=== PATIENT | female | born 1990 | race African-American/Black ===

== ENCOUNTER 2016-12-17 13:28 | Emergency (ER) | payer MEDICAID, OTHER ==
[~2016-12-17 13:28] MED LIST: HYDR-3533 PO
[2016-12-17 13:29] VITALS: BP 138/79; PULSE 93; RESP 20; TEMP 99.1; O2SAT 99
[2016-12-17 13:58] VITALS: BP 130/85; PULSE 89; RESP 15; O2SAT 99
[2016-12-17] MEDS ORDERED: SODIUM CHLOR 0.9% 1000 ML INJ 1,000 ML IV SCH (13:59)
[2016-12-17] MEDS ORDERED: SODIUM CHLORIDE 0.9% FLUSH 10 ML FLUSH IV FLUSH PRN (14:00)
[2016-12-17] MEDS ORDERED: ONDANSETRON HCL 4 MG/2 ML VIAL IVP ONE (14:00)
--- NOTE | 2016-12-17 14:04 | PD ---
HPI Chief Complaint: Cold / Flu Symptoms Time Seen by Provider: 13:52 Travel History International Travel<30 days: No Contact w/Intl Traveler<30days: No Traveled to known affect area: No History of Present Illness HPI Patient comes in complaining of nausea, vomiting, subjective fevers, and generalized body aches that she awoke with this morning. Patient denies any diarrhea, loss or change in bowel or bladder, abdominal pain, chest pain, shortness breath, or headaches. Patient denies doing anything for this as she states she's been unable keep anything down. Eating or drinking anything makes her symptoms worse. Patient denies anything making it better. Severity mild. Denies states she is on the Depo-Provera. [facility] Past Medical History Medical History: Denies Significant Hx Tetanus Vaccination: Unknown ?: Not Past Surgical History Surgical History: No Previous Surgery Social History Alcohol Use: No (occ) Tobacco Use: No Substance Use: No Allergies-Medications (Allergen,Severity, Reaction): Coded Allergies: Penicillins (Verified Allergy, Unknown, 12/17/16) Reported Meds & Prescriptions Reported Meds & Active Scripts Active Phenergan Supp (Promethazine HCl) 12.5 Mg Supp 12.5 Mg RECTAL Q6H PRN Zofran Odt (Ondansetron Odt) 4 Mg Tab 4 Mg SL Q6HR PRN Lortab 5 mg/325 mg (Hydrocodone/Acetaminophen 5 mg/325 mg) 1 Tab 1-2 Tab PO Q4H PRN Review of Systems Except as stated in HPI: all other systems reviewed are Neg Physical Exam Narrative GENERAL: Well-developed, well nourished, in no acute distress, and non-ill appearing. Temperature rechecked at bedside by myself found to be 98.1 orally. SKIN: Focused skin assessment warm and dry. HEAD: Atraumatic. Normocephalic. EYES: Pupils equal and round. EOMI. No scleral icterus. No injection or drainage. ENT: No nasal bleeding or discharge. Mucous membranes pink and moist. NECK: Trachea midline. Supple. No nuclear rigidity. CARDIOVASCULAR: Regular rate and rhythm. No murmur appreciated. RESPIRATORY: No accessory muscle use. No respiratory distress. Clear to auscultation. Breath sounds equal bilaterally. GASTROINTESTINAL: Abdomen soft, non-tender, nondistended, and no guarding. Hepatic and splenic margins not palpable. Normal bowel sounds 4. No pulsatile mass. MUSCULOSKELETAL: No obvious deformities. No clubbing. No cyanosis. No edema. Full range of motion. NEUROLOGICAL: Awake and alert. No obvious cranial nerve deficits. Motor grossly within normal limits. Normal speech. PSYCHIATRIC: Appropriate mood and affect; insight and judgment normal. Data Data Last Documented VS Vital Signs Date Time Temp Pulse Resp B/P (MAP) Pulse Ox O2 Delivery O2 Flow Rate FiO2 12/17/16 14:58 85 16 100 12/17/16 13:29 99.1 Orders Orders Complete Blood Count With Diff (12/17/16 13:59) Comprehensive Metabolic Panel (12/17/16 13:59) Lipase (12/17/16 13:59) Urinalysis - C+S If Indicated (12/17/16 13:59) Iv Access Insert/Monitor (12/17/16 13:59) Ecg Monitoring (12/17/16 13:59) Oximetry (12/17/16 13:59) Ondansetron Inj (Zofran Inj) (12/17/16 14:00) Sodium Chlor 0.9% 1000 Ml Inj (Ns 1000 M (12/17/16 13:59) Sodium Chloride 0.9% Flush (Ns Flush) (12/17/16 14:00) Electrocardiogram (12/17/16 13:59) Ed Urine Pregnancytest Poc (12/17/16 13:59) Influenzae A/B Antigen (12/17/16 13:59) Chest, Single Ap (12/17/16 ) Ketorolac Inj (Toradol Inj) (12/17/16 15:00) Ondansetron Inj (Zofran Inj) (12/17/16 15:00) Labs Laboratory Tests Test 12/17/16 14:06 White Blood Count 7.5 TH/MM3 Red Blood Count 4.97 MIL/MM3 Hemoglobin 13.8 GM/DL Hematocrit 41.5 % Mean Corpuscular Volume 83.5 FL Mean Corpuscular Hemoglobin 27.7 PG Mean Corpuscular Hemoglobin Concent 33.2 % Red Cell Distribution Width 14.4 % Platelet Count 145 TH/MM3 Mean Platelet Volume 9.4 FL Neutrophils (%) (Auto) 84.7 % Lymphocytes (%) (Auto) 7.1 % Monocytes (%) (Auto) 7.5 % Eosinophils (%) (Auto) 0.5 % Basophils (%) (Auto) 0.2 % Neutrophils # (Auto) 6.4 TH/MM3 Lymphocytes # (Auto) 0.5 TH/MM3 Monocytes # (Auto) 0.6 TH/MM3 Eosinophils # (Auto) 0.0 TH/MM3 Basophils # (Auto) 0.0 TH/MM3 CBC Comment DIFF FINAL Differential Comment Urine Color YELLOW Urine Turbidity CLEAR Urine pH 7.0 Urine Specific Glade 1.027 Urine Protein TRACE mg/dL Urine Glucose (UA) NEG mg/dL Urine Ketones NEG mg/dL Urine Occult Blood NEG Urine Nitrite NEG Urine Bilirubin NEG Urine Urobilinogen LESS THAN 2.0 MG/DL Urine Leukocyte Esterase MOD Urine RBC 1 /hpf Urine WBC 6 /hpf Urine Squamous Epithelial Cells 4 /hpf Urine Bacteria FEW /hpf Urine Mucus FEW /lpf Microscopic Urinalysis Comment CULT NOT INDICATED Blood Urea Nitrogen 7 MG/DL Creatinine 0.92 MG/DL Random Glucose 96 MG/DL Total Protein 7.9 GM/DL Albumin 4.2 GM/DL Calcium Level 8.9 MG/DL Alkaline Phosphatase 62 U/L Aspartate Amino Transf (AST/SGOT) 32 U/L Alanine Aminotransferase (ALT/SGPT) 47 U/L Total Bilirubin 0.9 MG/DL Sodium Level 138 MEQ/L Potassium Level 3.9 MEQ/L Chloride Level 104 MEQ/L Carbon Dioxide Level 24.3 MEQ/L Anion Gap 10 MEQ/L Estimat Glomerular Filtration Rate 88 ML/MIN Lipase 67 U/L [facility] Medical Decision Making Medical Screen Exam Complete: Yes Emergency Medical Condition: Yes Interpretation(s) Chest x-ray with radiologist shows: No acute disease. Differential Diagnosis Influenza, viral syndrome, electrolyte abnormality, gastroenteritis, pneumonia, UTI, other Narrative Course Patient looks great, non-ill appearing but does appear slightly volume depleted without evidence of significant dehydration. The patient was given IVF in the Emergency Department for rehydration. The patient responded well and is tolerating fluids and appears hydrated. I suspect viral etiology versus possible gastritis by history and exam. The abdominal exam is unremarkable without defined focal tenderness. There are normal active bowel sounds without any masses, distension, or significant tenderness. There was no evidence of an acute, surgical abdomen at this time. There was no clinical evidence to support cholecystitis/cholelithiasis, pancreatitis, perforation of gastric ulcer, colitis, diverticulitis, peritonitis, obstruction, volvulus, early appendicitis , or hernial incarceration or strangulation at this time. There was no evidence to support vascular pathology such as AAA, mesenteric ischemia. There was also no clinical evidence by history, exam or risk factors to suggest atypical presentation of cardiac disease such as ACS, AMI or atypical angina. No evidence to suggest genitourinary etiology as well. During the course of the ED visit, the patient noted improvement. Clinical picture was discussed with the patient, as well as plan of care. The patient was instructed to follow up with their physician. Abdominal pain warnings were discussed with the patient. The patient is to return if worsens, pain worsens or changes, develop fever, inability to tolerate fluids with or without vomiting, increased vomiting, blood in vomit, unable to establish follow up or as needed. The patient agrees with plan. The patient was tolerating fluids at time of discharge. Patient in no obvious distress upon re-evaluation. All pertinent laboratory/ Radiology result(s) discussed with patient. Patient was asked if they wanted to speak to my attending, which the patient did not wish to do at this time. Any questions/concerns in reference to patient diagnosis/condition discussed and clarified prior to patient's discharge. Reinforced sheer importance of close follow up with patient's primary physician or primary care clinic. Instructed patient to return to ED immediately, if symptoms return/worsen. Pt showed understanding of above instructions. Further instructions and recommendations were detailed in discharge paperwork. Pt ambulated without difficulty out of ED at discharge. Diagnosis Primary Impression: Nausea and vomiting Qualified Codes: R11.2 - Nausea with vomiting, unspecified Referrals: [facility] Patient Instructions: Acute Nausea and Vomiting (ED), General Instructions Additional Instructions: Follow-up with your primary care physician this week for evaluation. Take all medication as prescribed. Use [id number] Tylenol and/or ibuprofen as needed for pain and/or fevers. Follow instructions on the packaging. Drink plenty non-caffeinated and nonalcoholic fluids. Return to the emergency department if symptoms get worse. Med/Other Pt SpecificInfo: Prescription(s) given Scripts Promethazine Supp (Phenergan Supp) 12.5 Mg Supp 12.5 MG RECTAL Q6H Y for NAUSEA OR VOMITING, #9 SUPP 0 Refills Prov: Lonny Colon MD 9/3/17 Ondansetron Odt (Zofran Odt) 4 Mg Tab 4 MG SL Q6HR Y for Nausea/Vomiting, #21 TAB 0 Refills Prov: Lonny Colon MD 12/17/16 Disposition: 01 DISCHARGE HOME Condition: Stable Nathan Stapleton Dec 17, 2016 14:04
--- NOTE | 2016-12-17 14:19 | RADRPT ---
EXAM DATE/TIME: 12/17/2016 14:14 [place] COMPARISON: No previous studies available for comparison. INDICATIONS : Vomiting. Cough. Chest pain. MEDICAL HISTORY : None. SURGICAL HISTORY : None. ENCOUNTER: Initial ACUITY: 1 day PAIN SCORE: 3/10 LOCATION: Bilateral chest FINDINGS: A single view of the chest demonstrates the lungs to be symmetrically aerated without evidence of mas s, infiltrate or effusion. The cardiomediastinal contours are unremarkable. Osseous structures are intact. CONCLUSION: No acute disease. Ganga Rubio MD FACR on December 17, 2016 at 14:18 Board Certified Radiologist. This report was verified electronically.
[2016-12-17 14:21] LABS: AUTOMATED NEUTROPHIL # 6.4 TH/MM3 (1.8-7.7); BASOPHIL % 0.2 % (0.0-2.0); EOSINOPHIL % 0.5 % (0.0-4.0); HEMATOCRIT 41.5 % (35.0-46.0); HEMO FLAGS DIFF FINAL; LYMPH % 7.1 % (9.0-44.0); LYMPHOCYTE # 0.5 TH/MM3 (1.0-4.8); MEAN CELL VOLUME 83.5 FL (80.0-100.0); MEAN CORPUSCULAR HEMOGLOBIN 27.7 PG (27.0-34.0); MEAN CORPUSCULAR HGB CONC 33.2 % (32.0-36.0); MONO % 7.5 % (0.0-8.0); NEUT % 84.7 % (16.0-70.0); PLATELET COUNT 145 TH/MM3 (150-450); RED BLOOD COUNT 4.97 MIL/MM3 (4.00-5.30); RED CELL DISTRIBUTION WIDTH 14.4 % (11.6-17.2); WHITE BLOOD COUNT 7.5 TH/MM3 (4.0-11.0)
[2016-12-17 14:30] LABS: BACTERIA, URINE FEW /hpf; BLOOD, URINE NEG (NEG); COMMENT (UR) CULT NOT INDICATED; CULTURE IF INDICATED CULT NOT INDICATED; GLUCOSE,URINE NEG (NEG); KETONE, URINE NEG (NEG); MUCUS URINE FEW /lpf (OCC); NITRITE,URINE NEG (NEG); SQUAMOUS EPITHELIAL CELL URINE 4 /hpf (0-5); URINE COLOR YELLOW (YELLW/STRAW)
[2016-12-17 14:38] LABS: ANION GAP 10 MEQ/L (5-15); AST (GOT) 32 U/L (15-37); BICARBONATE 24.3 MEQ/L (21.0-32.0); BLOOD UREA NITROGEN 7 MG/DL (7-18); CHLORIDE 104 MEQ/L (98-107); GLOMERULAR FILTRATION RATE 88 ML/MIN (>89); POTASSIUM 3.9 MEQ/L (3.5-5.1); SODIUM (NA) 138 MEQ/L (136-145)
[2016-12-17 14:39] LABS: ALT (GPT) 47 U/L (10-53)
[2016-12-17 14:41] LABS: ALKALINE PHOSPHATASE 62 U/L (45-117); TOTAL BILIRUBIN ADULT 0.9 MG/DL (0.2-1.0)
[2016-12-17] MEDS ORDERED: ZOFR4TAB3 SL (14:51)
[2016-12-17] MEDS ORDERED: PROM2SUP RECTAL (14:51)
[2016-12-17] MEDS ORDERED: ONDANSETRON HCL 4 MG/2 ML VIAL IV PUSH ONE (15:00)
[2016-12-17] MEDS ORDERED: KETOROLAC TROMETHAMINE 30 MG/ML (IVP) VIAL IV PUSH ONE (15:00)
== END 2016-12-17 15:13 | disposition home or self-care (01) ==
LOC: NEPE 13:28
DX: R11.2 Nausea with vomiting, unspecified (principal); R50.9 Fever, unspecified; M79.1 Myalgia
CPT/HCPCS: 71010; 80053; 81001; 83690; 84703; 85025; 87804; 96361; 96374; 96375; 96376; 99284; J1885; J2405; J7030